=== PATIENT | male | born 1975 | race African-American/Black ===

== ENCOUNTER 2022-11-28 00:06 | Inpatient (IN) | payer MEDICAID ==
[~2022-11-28] VITALS: Ht 185.4 cm; Wt 101.6 kg
[2022-11-28] VITALS (13 sets, daily range): BP systolic 153–182; BP diastolic 79–118
[2022-11-28] MEDS ORDERED: ASPIRIN 81MG TABLET PO ONE (01:15)
[2022-11-28 01:26] LABS: BASOPHILS % 1.1 % (0.0-2.0); EOSINOPHILS % 4.1 % (0.0-5.0); HEMATOCRIT. 43.5 % (42.0-52.0); HEMOGLOBIN. 14.9 g/dL (14.0-18.0); LYMPHOCYTES % 39.4 % (20.0-50.0); MEAN CORPUSCULAR HEMOGLOBIN 32.8 pg (28.0-32.0); MEAN CORPUSCULAR VOLUME 95.7 fL (80.0-94.0); MEAN PLATELET VOLUME 8.8 fl (7.4-10.4); MONOCYTES % 7.2 % (2.0-8.0); NEUTROPHILS % 48.2 % (40.0-76.0); PLATELET 116 x1000/uL (130-400); RED BLOOD CELL COUNT 4.55 mill/uL (4.7-6.1); RED CELL DISTRIBUTION WIDTH 14.5 % (11.6-14.6)
[2022-11-28 01:31] LABS: CHLORIDE 109 mEq/L (98-107)
[2022-11-28 01:35] LABS: PARTIAL THROMBOPLASTIN TIME 27.3 sec (23.4-31.0); PROTHROMBIN TIME 11.2 sec (9.6-11.0)
[2022-11-28] MEDS ORDERED: HEPARIN 25,000 UNITS PREMIX 250 ML IV ONE (03:30)
[2022-11-28] MEDS ORDERED: HEPARIN 5000 UNITS/ML VIAL IV ONE (03:30)
[2022-11-28] MEDS ORDERED: HYDRALAZINE 20MG/ML VIAL IV ONE (04:15)
[2022-11-28] MEDS ORDERED: HEPARIN 60 UNITS/KG BOLUS IV NR ×2 (04:30→04:45)
[2022-11-28] MEDS ORDERED: HEPARIN 25,000 UNITS PREMIX 250 ML IV SCH (04:30)
[2022-11-28] MEDS ORDERED: HEPARIN BOLUS PRN aPTT <30 IV (10:30)
[2022-11-28] MEDS ORDERED: HEPARIN BOLUS PRN aPTT 30-44 IV (10:30)
[2022-11-28] MEDS ORDERED: DOCU-150 PO (15:46)
[2022-11-28] MEDS ORDERED: VALS160T28 PO (15:46)
[2022-11-28] MEDS ORDERED: HYDR-4134 PO (15:46)
[2022-11-28] MEDS ORDERED: ATOR40TA70 PO (15:46)
[2022-11-28] MEDS ORDERED: DILT360C31 PO (15:46)
[2022-11-28] MEDS ORDERED: ZOLPIDEM TARTRATE 5MG TABLET PO PRN (16:00)
[2022-11-28] MEDS ORDERED: NITROGLYCERIN 0.4MG TABLET SL SL PRN (16:00)
[2022-11-28] MEDS ORDERED: MAGNESIUM/ALUMINUM HYDROXIDE/SIMETHICONE 30ML UDC PO PRN (16:00)
[2022-11-28] MEDS ORDERED: ACETAMINOPHEN 325MG TABLET PO PRN (16:00)
[2022-11-28] MEDS ORDERED: ONDANSETRON HCL 4MG/2ML INJ IV PRN (16:00)
[2022-11-28] MEDS ORDERED: CLONIDINE 0.1MG TABLET PO PRN (16:00)
[2022-11-28] MEDS: ATORVASTATIN CALCIUM 40MG TABLET PO SCH (16:07)
[2022-11-28] MEDS: DILTIAZEM HCL 120MG CAPSULE ER 24HR PO SCH (16:08)
[2022-11-28] MEDS: LOSARTAN POTASSIUM 100 MG TABLET PO SCH (16:08)
[2022-11-28] MEDS ORDERED: ENOXAPARIN 40MG/0.4ML SYR SUBCUT SCH (20:00)
[2022-11-28] MEDS: HYDRALAZINE HCL 25MG TABLET PO SCH (21:30)
[2022-11-29] VITALS (11 sets, daily range): BP systolic 145–182; BP diastolic 96–131
[2022-11-29] MEDS ORDERED: DOCUSATE SODIUM 100MG CAPSULE PO SCH (04:00)
[2022-11-29] MEDS: HYDRALAZINE HCL 25MG TABLET PO SCH ×2 (06:00→14:00)
[2022-11-29] MEDS: DILTIAZEM HCL 120MG CAPSULE ER 24HR PO SCH (09:00)
[2022-11-29] MEDS ORDERED: ASPIRIN 325MG EC TABLET PO SCH (09:00)
[2022-11-29] MEDS: LOSARTAN POTASSIUM 100 MG TABLET PO SCH (09:34)
[2022-11-29] MEDS: ATORVASTATIN CALCIUM 40MG TABLET PO SCH (09:34)
== END 2022-11-29 17:00 | disposition left against medical advice (07) | DRG 190 ==
LOC: ER 00:06 → MICUSO 03:22 → 5EST 14:54
PROVIDERS: ADMIT Internal Medicine Pulmonary Disease; ATTEND Internal Medicine
DX: I21.4 Non-ST elevation (NSTEMI) myocardial infarction (principal); I10 Essential (primary) hypertension; Z53.29 Procedure and treatment not carried out because of patient's decision for other reasons; Z20.822 Contact with and (suspected) exposure to COVID-19; Z79.82 Long term (current) use of aspirin; Z82.49 Family history of ischemic heart disease and other diseases of the circulatory system
CPT/HCPCS: 36415; 71045; 80053; 83880; 84484; 85025; 86850; 86900; 87426; 93005; 93306; 99291; C9803; J0360; J1644; J1650